=== PATIENT | female | born 1940 | race Caucasian/White ===

== ENCOUNTER → 2017-01-28 | Outpatient (CLI) | payer OTHER ==
[~2017-01-28] MED LIST: CALCIUM-MAG-ZI1 EACH PO; CENTRAVITES 501 EAC1 PO; COUMADIN3 MG PO; COZAAR100 MG PO; HYDROCHLOROTHIA25 MG PO; LATANOPROST2.5 ML BOTH EYES; Oscal 500 w/Vitamin PO; PRAVASTATIN SOD40 MG PO; PREVACID 24HR15 MG PO; PROTONIX40 MG PO; TYLENOL EXTRA500 MG PO
[2017-01-28 10:42] LABS: BASOPHIL COUNT 0.1 K/uL (0-0.1); EOSINOPHIL (%) 1.2 % (0-5); EOSINOPHIL COUNT 0.1 K/uL (0-0.3); HEMATOCRIT 37.6 % (36.0-46.0); IMMATURE GRANULOCYTE (%) 0.3 % (0.0-0.7); INSTRUMENT ABS NEUTROPHIL CT 3.8 K/uL; LYMPHOCYTE COUNT 2.8 K/uL (1.0-2.8); MCH 33.3 PG (29.0-34.0); MCHC 32.4 G/DL (30.0-36.0); MCV 102.7 FL (83-99); MEAN PLAT.VOLUME 10.2 uM^3 (9.5-12.4); MONOCYTE COUNT 0.6 K/uL (0-0.8); NEUTROPHIL (%) 52.1 % (45-76); NEUTROPHIL COUNT 3.8 K/uL (1.8-6.4); PLATELET COUNT 700 K/uL (156-360); RBC DIS.WIDTH-CV 13.6 % (11.8-14.6); RBC DIS.WIDTH-SD 51.9 % (39-53); RED BLOOD COUNT 3.66 M/uL (3.80-5.20); WHITE BLOOD COUNT 7.4 K/uL (4.1-10.2)
[2017-01-28 10:48] LABS: PTT 28.6 (25-32)
[2017-01-28 10:56] LABS: INTER. NORMALIZED RATIO 1.2
[2017-01-30 15:12] LABS: Flow Number of Markers 24 (()); Flow Spec Viability 97 % (()); Flow Specimen Type BONE MARROW (())
== END | disposition home or self-care (01) ==
LOC: OPR 09:50 → EDSTATUS 10:00
PROVIDERS: Internal Medicine Hematology & Oncology
PROC: 0QB23ZX Excision of Right Pelvic Bone, Percutaneous Approach, Diagnostic (ICD-10-PCS; principal; 2017-01-28)
DX: D47.2 Monoclonal gammopathy (principal); D75.89 Other specified diseases of blood and blood-forming organs; Z79.01 Long term (current) use of anticoagulants; Z88.0 Allergy status to penicillin; Z88.8 Allergy status to other drugs, medicaments and biological substances; Z88.5 Allergy status to narcotic agent
CPT/HCPCS: 77012; 85007 GA; 85025; 85610; 85730; 85999; J3010

== ENCOUNTER 2018-04-04 07:44 | Emergency (ER) | payer OTHER ==
[~2018-04-04] VITALS: Ht 157.5 cm; Wt 75.0 kg
[2018-04-04 09:10] LABS: BASOPHIL (%) 0.7 % (0-1); BASOPHIL COUNT 0.1 K/uL (0-0.1); EOSINOPHIL (%) 1.1 % (0-5); EOSINOPHIL COUNT 0.1 K/uL (0-0.3); HEMOGLOBIN 10.7 G/DL (11.9-15.5); IMMATURE GRANULOCYTE (%) 0.4 % (0.0-0.7); LYMPHOCYTE COUNT 2.2 K/uL (1.0-2.8); MCH 34.3 PG (29.0-34.0); MCHC 33.4 G/DL (30.0-36.0); MCV 102.6 FL (83-99); MONOCYTE (%) 8.2 % (3-12); MONOCYTE COUNT 0.8 K/uL (0-0.8); NEUTROPHIL (%) 66.6 % (45-76); NEUTROPHIL COUNT 6.3 K/uL (1.8-6.4); PLATELET COUNT 847 K/uL (156-360); RBC DIS.WIDTH-CV 13.8 % (11.8-14.6); RBC DIS.WIDTH-SD 51.5 % (39-53); RED BLOOD COUNT 3.12 M/uL (3.80-5.20); WHITE BLOOD COUNT 9.5 K/uL (4.1-10.2)
[2018-04-04 09:16] LABS: INTER. NORMALIZED RATIO 1.2
[2018-04-04 09:18] LABS: PTT 25.5 SEC (25-37)
[2018-04-04 09:21] LABS: CHLORIDE 109 mEq/L (99-109); POTASSIUM 4.4 mEq/L (3.7-5.4); SODIUM 141 mEq/L (136-147)
[2018-04-04 09:23] LABS: GLUCOSE 99 mg/dL (70-99)
[2018-04-04 09:27] LABS: CREATININE 1.4 mg/dL (0.6-1.3); GFR ESTIMATE (CALCULATED) 39 mL/min/; UREA NITROGEN (BUN) 44 mg/dL (9-23)
[2018-04-04] MEDS ORDERED: LOVENOX80 MG/0.8 SC (13:38)
[2018-04-04 14:01] VITALS: BP 115/75
== END 2018-04-04 14:05 | disposition home or self-care (01) ==
LOC: EME 07:44
PROVIDERS: Nurse Practitioner Family
DX: I82.443 Acute embolism and thrombosis of tibial vein, bilateral (principal); I82.4Z2 Acute embolism and thrombosis of unspecified deep veins of left distal lower extremity; I48.91 Unspecified atrial fibrillation; Z87.19 Personal history of other diseases of the digestive system; E78.5 Hyperlipidemia, unspecified; I10 Essential (primary) hypertension
CPT/HCPCS: 71046; 80048; 85025; 85610; 85730; 93005; 93970; 99281; 99284; J1650